=== PATIENT | female | born 1960 | race Two or more races ===

== ENCOUNTER 2018-02-17 03:08 | Emergency (ER) | payer OTHER ==
[~2018-02-17] VITALS: Ht 165.1 cm; Wt 63.5 kg
[2018-02-17] MEDS ORDERED: SYNTHROID75 MCG (03:49)
[2018-02-17] MEDS ORDERED: ADULT ASPIRIN81 MG (03:49)
[2018-02-17] MEDS ORDERED: OMEGA 3 1,0001 EACH (03:50)
[2018-02-17] MEDS ORDERED: KETO10TA2 PO (08:29)
[2018-02-17] MEDS ORDERED: ORPHENADRINE C100 MG PO (08:29)
== END 2018-02-17 09:50 | disposition home or self-care (01) ==
LOC: ER 03:08
DX: S13.4XXA Sprain of ligaments of cervical spine, initial encounter (principal); S70.02XA Contusion of left hip, initial encounter; M62.838 Other muscle spasm; V49.9XXA Car occupant (driver) (passenger) injured in unspecified traffic accident, initial encounter; Y93.89 Activity, other specified; Y92.488 Other paved roadways as the place of occurrence of the external cause; Y99.8 Other external cause status